=== PATIENT | female | born 1995 | race African-American/Black ===

== ENCOUNTER 2017-05-23 22:21 | Inpatient (IN) | payer BC ==
[2017-05-23] MEDS ORDERED: NS 0.9% 1000 ML* 2,000 ML IV ONE (23:03)
[2017-05-23] MEDS ORDERED: Ondansetron INJ* 2 MG/ML VIAL IV ONE (23:13)
[2017-05-23] MEDS ORDERED: HYDROmorphone INJ* 1 MG/ML CARPUJECT SYRINGE IV ONE (23:13)
[2017-05-23 23:46] LABS: Corrected Retic Count 3.5 % (0.5-1.5); Hematocrit 25 % (35-47); Hemoglobin 8.6 g/dl (12.0-16.0); Immature Retic Fraction 0.66; Mean Corpuscular HGB Conc 35 g/dl (31-36); Mean Corpuscular Hemoglobin 25 pg (27-31); Mean Corpuscular Volume 72 fL (80-97); Mean Platelet Volume 8 um3 (7.4-10.4); Red Blood Count 3.42 10^6/ul (4.0-5.4); Red Cell Distribution Width 21 % (10.5-15); White Blood Count 12.9 10^3/ul (3.5-10.8)
[2017-05-23 23:58] LABS: Add Diff/Slide Review? Slide Review Added; Comments Flag Yes
[2017-05-24 00:01] LABS: Albumin 4.4 g/dL (3.2-5.2); BUN/Creatinine Ratio 11.1 (8-20); C Reactive Protein 1.09 mg/L (< 5.00); Calcium 9.1 mg/dL (8.6-10.3); EGFR African American 131.5 (>60); EGFR Non-African American 102.3 (>60); Globulin 3.1 g/dL (2-4); Potassium 3.4 mmol/L (3.5-5.0); Total Bilirubin 3.2 mg/dL (0.2-1.0); Total Protein 7.5 g/dL (6.4-8.9)
[2017-05-24] MEDS ORDERED: HYDROmorphone INJ* 1 MG/ML CARPUJECT SYRINGE IV ONE (01:22)
[2017-05-24] MEDS ORDERED: NS 0.9% 1000 ML* 1,000 ML IV ONE (01:25)
[2017-05-24 01:45] LABS: Microcytosis 2+; Target Cells 3+
[2017-05-24 01:46] LABS: Hypochromasia 2+; Sickle Cells 2+
[2017-05-24 01:48] LABS: Polychromasia 1+
[2017-05-24 01:50] LABS: Add Path Review? YES
[2017-05-24] MEDS ORDERED: HYDROmorphone INJ* 1 MG/ML CARPUJECT SYRINGE IV SLOW PU PRN ×2 (02:43→03:02)
[2017-05-24] MEDS ORDERED: Albuterol HFA INHALER* 8 gm MDI INH PRN (03:14)
[2017-05-24] MEDS: HYDROmorphone INJ* 2 MG/ML CARPUJECT SYRINGE IV SLOW PU PRN ×2 (04:11→07:14)
--- NOTE | 2017-05-24 04:33 | HP ---
CC: Francisco Haro MD; Rosita Gibbons MD HISTORY AND PHYSICAL: DATE OF ADMISSION: 05/24/17 PRIMARY CARE PROVIDER: Francisco Haro MD, [place], [place]. HOME WORKER: Rosita Gibbons MD in [place], [place]. CHIEF COMPLAINT: Diffuse pain. HISTORY OF PRESENT ILLNESS: Ms. 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 The patient states at approximately 8 p.m. on 05/23/17, she had sudden onset of severe chest pain and diffuse limb pain but most specifically bothering her knees. In addition to the pain, she has moderate shortness of breath. She does note that she currently has her period as potential trigger for the sickle cell pain episode. She states that her last pain episode requiring hospitalization was in 2013. She states that ordinarily she will have weekly episodes of pain. She does state that her baseline hemoglobin is between 8.5 to 9. PAST MEDICAL HISTORY: 1. Sickle cell disease. 2. Asthma. PAST SURGICAL HISTORY: None. MEDICATIONS: 1. Folic acid 1 mg p.o. daily. 2. Albuterol inhaler p.r.n. 3. Percocet p.r.n. ALLERGIES: None. FAMILY HISTORY: Mom is living, she is 48 and has a history of hypertension. Dad is living, he is 52 and healthy. SOCIAL HISTORY: The patient is a nonsmoker. She does not drink alcohol. She denies any recreational drug use. She is a senior at [employer]. She is not . She has no children. She indicates that her father, Stoney, phone number is her healthcare proxy. REVIEW OF SYSTEMS: The patient denies any fevers, chills, or anorexia. She admits to chest pain as above. No edema. No cough. Moderate shortness of breath. No abdominal pain, nausea, vomiting, constipation, diarrhea, or hematochezia. No hematuria though she does currently have her period. No dysuria. She feels as though she is diffusely weak. No sudden changes in vision. No dysphagia. She does complain of diffuse joint pains, but more specifically in her knees. No rashes. No anxiety or depression. PHYSICAL EXAMINATION GENERAL: The patient is a well-developed, young, female, lying in a stretcher, moving very little, but appearing to be in no acute distress. VITAL SIGNS: Blood pressure 111/62, pulse 88, respirations 16, temp 97.8, O2 sat 95% on room air. HEENT: Pupils are equal. They are round. They react to light. Extraocular muscles are intact. Oropharynx is clear. Oral mucosa is slightly dry. There is no submandibular, cervical or supraclavicular adenopathy. Thyroid is not enlarged. No thyroid nodules are noted. PULMONARY: Lungs are clear to auscultation bilaterally. Breath sounds are diminished due to poor effort due to pain with inspiration. CARDIAC: Normal S1 and S2. Regular rate and rhythm. I do not appreciate any murmurs. There is no lower extremity edema. ABDOMEN: Bowel sounds are present. Abdomen is soft, nontender, nondistended. MUSCULOSKELETAL: There is no cyanosis or clubbing of the digits. Active range of motion is limited due to pain. Light touch to the patient's knees does cause severe pain. SKIN: Warm and dry. There are no rashes. NEURO: Cranial nerves II through XII are grossly intact. Sensation is intact to light touch throughout. Strength is not tested due to the patient's pain level. LABORATORY DATA/DIAGNOSTIC STUDIES: WBC 12.9, hemoglobin 8.6, hematocrit 25, platelets 309, and reticulocyte count 6.3%. Sodium 134, potassium 3.4, chloride 103, CO2 22, BUN 8, creatinine 0.72, and glucose 96. Lactic acid 1.1. Calcium 9.1. Bilirubin 3.2, AST 38, ALT 15, alk phos 49. Troponin 0. CRP 1.09. Albumin 4.4. To my inspection, the chest x-ray appears clear. EKG reveals normal sinus rhythm without any acute ST-T wave abnormalities. ASSESSMENT AND PLAN: Ms. Pettit is a 21-year-old female with known history of sickle cell disease presents to the emergency room in an acute pain episode related to her sickle cell disease. 1. Acute pain episode secondary to sickle cell disease. At this point, the patient will be admitted under observation status. She has had 3 L of normal saline in the emergency room. We will go ahead and continue normal saline at 100 mL per hour. We will need to monitor her sodium level as she can become hypernatremic with this as her sodium excretion could be impaired related to her sickle cell disease. Additionally, she will have Dilaudid 1 mg IV q.3 hours p.r.n. pain. At this point, the patient denies any further need for pain medication, though does state that her pain is much better now than it was when she presented to the emergency room. The patient at this point does not appear to have acute chest syndrome. Hematology input may be necessary if the patient fails to improve with basic measure such as hydration and pain control. 2. Asthma. The patient has no signs of asthma exacerbation at this time. We will continue p.r.n. albuterol. 3. Deep vein thrombosis prophylaxis. According to the Adult Thrombosis Prophylaxis Risk Factor Assessment Guide, the patient has a total risk factor score of likely 1 related to her sickle cell disease; however, recommendations are for subcutaneous heparin q.8 hours as DVT prophylaxis and therefore this will be instituted. 4. Code status is full and again the patient indicates that her father is her healthcare proxy. TIME SPENT: 55 minutes were spent admitting this patient. [id number]/[facility] #: [id number] OVI
[2017-05-24] MEDS: NS 0.9% 1000 ML* 1,000 ML IV SCH ×3 (05:03→23:22)
[2017-05-24] MEDS ORDERED: HYDROmorphone INJ* 2 MG/ML CARPUJECT SYRINGE IV SLOW PU ONE (05:03)
[2017-05-24] MEDS: Heparin VIAL(*) 5000 UNITS/ML VIAL (FIVE THOUSAND) SUBCUT SCH ×3 (05:18→21:48)
[2017-05-24] MEDS: Saline NASAL SPRAY 0.65%* BTL BOTH NARES PRN (05:51)
--- NOTE | 2017-05-24 07:27 | ED ---
Miguelito Urias Abhishek, scribed for Vu Laboy MD on 05/24/17 at 0223 . Complex/Multi-Sys Presentation - HPI Summary HPI Summary: This patient is a 21 year old F presenting to [facility] accompanied by female with a chief complaint of sickle cell pain in extremities since 0800 05/21/17. Pt is a student. Condition has not improved since onset. The CC is described as constant. The patient rates the pain 9/10 in severity. Symptoms aggravated by nothing. Symptoms alleviated by nothing. Patient reports last major pain in 2013. PMHx includes sickle cell anemia, and asthma. - History Of Current Complaint Chief Complaint: EDGeneral Time Seen by Provider: 05/24/17 02:08 Hx Obtained From: Patient Onset/Duration: Sudden Onset - 0800 on 05/21/17, Lasting Days - since 05/21/17, Still Present Timing: Constant Severity Currently: Severe Severity Initially: Severe Location: Pain At: - Extremeties (both upper and lower) Aggravating Factor(s): nothing Alleviating Factor(s): nothing - Allergies/Home Medications Allergies/Adverse Reactions: Allergies Allergy/AdvReac Type Severity Reaction Status Date / Time No Known Allergies Allergy Verified 05/23/17 22:55 Home Medications: Home Medications Albuterol HFA INHALER* [Ventolin HFA Inhaler*] 2 puff INH Q4H PRN 05/24/17 [ History Confirmed 05/24/17] Folic Acid TAB* [Folvite TAB*] 1 mg PO DAILY 05/24/17 [History Confirmed ] oxyCODONE/Acetamin 5/325 MG* [Percocet 5/325 TAB*] 2 tab PO Q4H PRN 05/24/17 [ History Confirmed 05/24/17] PMH/Surg Hx/FS Hx/Imm Hx Cardiovascular History: Reports: Other Cardiovascular Problems/Disorders - Sickle cell anemia Respiratory History: Reports: Hx Asthma Infectious Disease History: No Infectious Disease History: Denies: Traveled Outside the [place] in Last 30 Days - Family History Known Family History: Positive: Hypertension - Mother - Social History Occupation: Student Alcohol Use: None Substance Use Type: Reports: None Smoking Status (MU): Never Smoked Tobacco Review of Systems Constitutional: Negative Eyes: Negative ENT: Negative Cardiovascular: Negative Respiratory: Negative Gastrointestinal: Negative Genitourinary: Negative Positive: Other - Pain in her lower and upper extremities Skin: Negative Neurological: Negative Psychological: Normal All Other Systems Reviewed And Are Negative: Yes Physical Exam - Summary Physical Exam Summary: General: moderate pain distress Skin: warm, color reflects adequate perfusion, dry Head: normal Eyes: EOMI, RANDY ENT: normal Neck: supple, nontender Respiratory: CTA, breath sounds present Cardiovascular: RRR Abdomen: soft, nontender Bowel: present Musculoskeletal: normal, strength/ROM intact Neurological: normal, sensory/motor intact, A&O x3 Psychological: affect/mood appropriate Triage Information Reviewed: Yes Vital Signs On Initial Exam: Initial Vitals Temp Pulse Resp BP Pulse Ox 97.8 F 91 18 110/61 100 05/23/17 22:30 05/23/17 22:30 05/23/17 22:30 05/23/17 22:30 05/23/17 22:30 Vital Signs Reviewed: Yes - Ivon Coma Scale Coma Scale Total: 15 Diagnostics - Vital Signs Vital Signs Temp Pulse Resp BP Pulse Ox 05/24/17 01:28 16 05/24/17 00:30 84 116/70 97 05/24/17 00:01 88 117/67 95 05/24/17 00:00 83 95 05/23/17 23:30 92 121/72 99 05/23/17 23:25 18 05/23/17 23:00 91 125/77 99 05/23/17 22:31 92 99 05/23/17 22:30 97.8 F 91 18 110/61 100 - Laboratory Lab Results: Lab Results 05/23/17 05/23/17 05/23/17 Range/Units 23:26 23:26 23:26 WBC 12.9 H (3.5-10.8) 10^3/ul RBC 3.42 L (4.0-5.4) 10^6/ul RBC (Retic) 3.42 L (4.6-6.2) 10^6/ul Hgb 8.6 L (12.0-16.0) g/dl Hct 25 L (35-47) % HCT (Retic) 25 L (35-47) % MCV 72 L (80-97) fL MCH 25 L (27-31) pg MCHC 35 (31-36) g/dl RDW 21 H (10.5-15) % Plt Count 309 (150-450) 10^3/ul MPV 8 (7.4-10.4) um3 Neut % (Auto) 68.7 (38-83) % Lymph % (Auto) 21.1 L (25-47) % [place] % (Auto) 8.1 (1-9) % Eos % (Auto) 1.1 (0-6) % Baso % (Auto) 1.0 (0-2) % Absolute Neuts (auto) 8.8 H (1.5-7.7) 10^3/ul Absolute Lymphs (auto) 2.7 (1.0-4.8) 10^3/ul Absolute Monos (auto) 1.0 H (0-0.8) 10^3/ul Absolute Eos (auto) 0.1 (0-0.6) 10^3/ul Absolute Basos (auto) 0.1 (0-0.2) 10^3/ul Absolute Nucleated RBC 0.07 10^3/ul Nucleated RBC % 0.5 Normal RBC Morphology Not Reportable Polychromasia 1+ Hypochromasia 2+ Microcytosis 2+ Sickle Cells 2+ Target Cells 3+ Retic Count, Calc 6.3 H (0.5-1.5) % Corrected Retic Count 3.5 H (0.5-1.5) % Retic Shift Factor 2.0 Retic Production Index 1.80 Immature Retic Fraction 0.66 Mean Retic Volume 111.3 Hem Pathologist Commnt Pending Sodium 134 (133-145) mmol/L Potassium 3.4 L (3.5-5.0) mmol/L Chloride 103 (101-111) mmol/L Carbon Dioxide 22 (22-32) mmol/L Anion Gap 9 (2-11) mmol/L BUN 8 (6-24) mg/dL Creatinine 0.72 (0.51-0.95) mg/dL Est GFR ( Amer) 131.5 (>60) Est GFR (Non-Af Amer) 102.3 (>60) BUN/Creatinine Ratio 11.1 (8-20) Glucose 96 (70-100) mg/dL Lactic Acid 1.1 (0.5-2.0) mmol/L Calcium 9.1 (8.6-10.3) mg/dL Total Bilirubin 3.20 H (0.2-1.0) mg/dL AST 38 (13-39) U/L ALT 15 (7-52) U/L Alkaline Phosphatase 49 (34-104) U/L Troponin I 0.00 (<0.04) ng/mL C-Reactive Protein 1.09 (< 5.00) mg/L Total Protein 7.5 (6.4-8.9) g/dL Albumin 4.4 (3.2-5.2) g/dL Globulin 3.1 (2-4) g/dL Albumin/Globulin Ratio 1.4 (1-3) Result Diagrams: 05/23/17 23:26 05/23/17 23:26 Lab Statement: Any lab studies that have been ordered have been reviewed, and results considered in the medical decision making process. - Radiology CXR Xray Interpretation: No Acute Changes - NAD Radiology Interpretation Completed By: ED Physician - EKG 0304 Cardiac Rate: NL - 81 bpm EKG Rhythm: Sinus Rhythm ST Segment: Normal Ectopy: None Complex Multi-Symp Course/Dx Course Of Treatment: This patient is a 21 year old F presenting to [facility] accompanied by female with a chief complaint of sickle cell pain in extremities since 0800 05/21/17. Condition has not improved since onset. The CC is described as constant. The patient rates the pain 9/10 in severity. Patient reports last major pain in 2013. PMHx includes sickle cell anemia, and asthma. EKG is sinus rhythm with no acute changes. Troponin of 0.00. In the ED course, pt received Dilaudid, Zofran and fluids. Discussed care of pt with Dr. Ashly Boyer who accepts pt for admisison. Pt is agreeable with this plan. Medication reviewed. ADMIT HOSPITALIST. NO CRITICAL CARE TIME. - Diagnoses Provider Diagnoses: Sickle cell anemia with pain - Physician Notifications Discussed Care Of Patient With: Ashly Boyer Time Discussed With Above Provider: 02:20 Instructed by Provider To: Other - Accepts pt for admission. Discharge - Discharge Plan Condition: Stable Disposition: ADMITTED TO [facility] The documentation as recorded by the Miguelito rodriguez Abhishek accurately reflects the service I personally performed and the decisions made by , Vu Laboy MD.
[2017-05-24 07:40] LABS: Hematocrit 21 % (35-47); Hemoglobin 7.3 g/dl (12.0-16.0); Mean Corpuscular HGB Conc 34 g/dl (31-36); Mean Corpuscular Hemoglobin 25 pg (27-31); Mean Corpuscular Volume 71 fL (80-97); Mean Platelet Volume 8 um3 (7.4-10.4); Red Cell Distribution Width 22 % (10.5-15); White Blood Count 14.4 10^3/ul (3.5-10.8)
[2017-05-24 07:41] LABS: Comments Flag Yes
[2017-05-24 07:52] LABS: BUN/Creatinine Ratio 9.5 (8-20); Calcium 8.1 mg/dL (8.6-10.3); Direct Bilirubin 0.4 mg/dL (0.03-0.18); EGFR African American 153.4 (>60); EGFR Non-African American 119.3 (>60); Globulin 2.7 g/dL (2-4); Potassium 3.8 mmol/L (3.5-5.0); Total Bilirubin 2.4 mg/dL (0.2-1.0); Total Protein 6.7 g/dL (6.4-8.9)
--- NOTE | 2017-05-24 08:03 | RAD ---
HISTORY: Sickle cell crisis, pain COMPARISONS: None VIEWS: 4: Frontal dual-energy and lateral views of the chest. FINDINGS: CARDIOMEDIASTINAL SILHOUETTE: The cardiomediastinal silhouette is normal. CARINE: The carine are normal. PLEURA: The costophrenic angles are sharp. No pleural abnormalities are noted. LUNG PARENCHYMA: The lungs are clear. ABDOMEN: The upper abdomen is clear. There is no subphrenic gas. BONES AND SOFT TISSUES: No bone or soft tissue abnormalities are noted. OTHER: None. IMPRESSION: NO ACTIVE CARDIOPULMONARY DISEASE.
--- NOTE | 2017-05-24 08:38 | PN ---
Subjective Date of Service: 05/24/17 Interval History: Pain in legs and chest. Hydromorphone makes her sleepy but does little to relieve her pain. She states this is the worst sickle crisis she has had. Her last hospitalization for sickle crisis was in 2013. She states she has never had a transfusion. Objective Active Medications: Acetaminophen (Tylenol Tab*) 650 mg PO Q4H PRN PRN Reason: PAIN Albuterol (Ventolin Hfa Inhaler*) 2 puff INH Q4H PRN PRN Reason: SOB/WHEEZING Folic Acid (Folvite Tab*) 1 mg PO DAILY [facility] Heparin Sodium (Porcine) (Heparin Vial(*)) 5,000 units SUBCUT Q8HR [facility] Last Admin: 05/24/17 05:18 Dose: Not Given Sodium Chloride (Ns 0.9% 1000 Ml*) 1,000 mls @ 100 mls/hr IV PER RATE [facility] Last Admin: 05/24/17 05:03 Dose: 100 mls/hr Morphine Sulfate (Morphine Inj (Syringe)*) 2 mg IV Q2H PRN PRN Reason: PAIN - MODERATE Morphine Sulfate (Morphine Inj (Syringe)*) 4 mg IV Q2H PRN PRN Reason: PAIN - SEVERE Stop: 05/24/17 16:32 Sodium Chloride (Sodium Chloride 0.65% Nasal [place]*) 2 spray BOTH NARES Q4H PRN PRN Reason: CONGESTION Last Admin: 05/24/17 05:51 Dose: 2 spray Vital Signs 05/24/17 05/24/17 05/24/17 03:00 03:08 03:15 Temperature Pulse Rate 85 86 Respiratory Rate Blood Pressure 112/65 115/72 (mmHg) O2 Sat by Pulse 96 95 Oximetry 05/24/17 05/24/17 05/24/17 03:59 04:11 05:10 Temperature 98.1 F Pulse Rate 88 Respiratory 18 18 18 Rate Blood Pressure 128/74 (mmHg) O2 Sat by Pulse 98 Oximetry 05/24/17 05/24/17 05/24/17 05:55 06:00 07:14 Temperature Pulse Rate Respiratory 20 18 16 Rate Blood Pressure (mmHg) O2 Sat by Pulse Oximetry 05/24/17 07:42 Temperature 100.2 F Pulse Rate 93 Respiratory 18 Rate Blood Pressure 120/64 (mmHg) O2 Sat by Pulse 90 Oximetry Oxygen Devices in Use Now: None Appearance: Awake but looks somewhat sedated. Supine in bed, not moving. Eyes: No Scleral Icterus Neck: NL Appearance and Movements; NL JVP, No Thyroid Enlargement, Masses Respiratory: Symmetrical Chest Expansion and Respiratory Effort, Clear to Auscultation, Clear to Percussion Cardiovascular: RRR, No Edema, - - Rapid, regular. 1-2/6 systolic murmur L > R Extremities: No Edema, No Clubbing, Cyanosis, - Skin: No Rash or Ulcers, No Nodules or Sclerosis, - Neurological: Alert and Oriented x 3, NL Sensation Result Diagrams: 05/24/17 07:22 05/24/17 07:22 Additional Lab and Data: Lab Results 05/23/17 05/23/17 05/23/17 Range/Units 23:26 23:26 23:26 WBC 12.9 H (3.5-10.8) 10^3/ul RBC 3.42 L (4.0-5.4) 10^6/ul RBC (Retic) 3.42 L (4.6-6.2) 10^6/ul Hgb 8.6 L (12.0-16.0) g/dl Hct 25 L (35-47) % HCT (Retic) 25 L (35-47) % MCV 72 L (80-97) fL MCH 25 L (27-31) pg MCHC 35 (31-36) g/dl RDW 21 H (10.5-15) % Plt Count 309 (150-450) 10^3/ul MPV 8 (7.4-10.4) um3 Neut % (Auto) 68.7 (38-83) % Lymph % (Auto) 21.1 L (25-47) % [place] % (Auto) 8.1 (1-9) % Eos % (Auto) 1.1 (0-6) % Baso % (Auto) 1.0 (0-2) % Absolute Neuts (auto) 8.8 H (1.5-7.7) 10^3/ul Absolute Lymphs (auto) 2.7 (1.0-4.8) 10^3/ul Absolute Monos (auto) 1.0 H (0-0.8) 10^3/ul Absolute Eos (auto) 0.1 (0-0.6) 10^3/ul Absolute Basos (auto) 0.1 (0-0.2) 10^3/ul Absolute Nucleated RBC 0.07 10^3/ul Nucleated RBC % 0.5 Normal RBC Morphology Not Reportable Polychromasia 1+ Hypochromasia 2+ Microcytosis 2+ Sickle Cells 2+ Target Cells 3+ Retic Count, Calc 6.3 H (0.5-1.5) % Corrected Retic Count 3.5 H (0.5-1.5) % Retic Shift Factor 2.0 Retic Production Index 1.80 Immature Retic Fraction 0.66 Mean Retic Volume 111.3 Hem Pathologist Commnt Pending Sodium 134 (133-145) mmol/L Potassium 3.4 L (3.5-5.0) mmol/L Chloride 103 (101-111) mmol/L Carbon Dioxide 22 (22-32) mmol/L Anion Gap 9 (2-11) mmol/L BUN 8 (6-24) mg/dL Creatinine 0.72 (0.51-0.95) mg/dL Est GFR ( Amer) 131.5 (>60) Est GFR (Non-Af Amer) 102.3 (>60) BUN/Creatinine Ratio 11.1 (8-20) Glucose 96 (70-100) mg/dL Lactic Acid 1.1 (0.5-2.0) mmol/L Calcium 9.1 (8.6-10.3) mg/dL Total Bilirubin 3.20 H (0.2-1.0) mg/dL AST 38 (13-39) U/L ALT 15 (7-52) U/L Alkaline Phosphatase 49 (34-104) U/L Troponin I 0.00 (<0.04) ng/mL C-Reactive Protein 1.09 (< 5.00) mg/L Total Protein 7.5 (6.4-8.9) g/dL Albumin 4.4 (3.2-5.2) g/dL Globulin 3.1 (2-4) g/dL Albumin/Globulin Ratio 1.4 (1-3) Assess/Plan/Problems-Billing Assessment: - Patient Problems (1) Sickle cell anemia with crisis Current Visit: Yes Status: Acute Code(s): D57.00 - HB-SS DISEASE WITH CRISIS , UNSPECIFIED SNOMED Code(s): 310691783 Comment: Continue IV fluids, analgesics. Message left for her primary hemtologist Rosita Gibbons ([phone]) to call me back. Change to morphine as her mother says it works better than hydromorphone for the patient. I spoke to the mother at [phone].
[2017-05-24] MEDS ORDERED: Heparin VIAL(*) 5000 UNITS/ML VIAL (FIVE THOUSAND) SUBCUT SCH (09:00)
[2017-05-24] MEDS: Morphine INJ* 4 MG/ML 1 ML CARPUJECT IV PRN ×4 (09:01→15:03)
[2017-05-24] MEDS: Folic Acid TAB* 1 MG PO SCH (09:02)
[2017-05-24] MEDS: Morphine INJ* 2 MG/ML 1 ML SYRINGE (TWO MG - NEW SYRINGE VERSION) IV PRN ×5 (11:00→23:22)
[2017-05-24] MEDS ORDERED: Morphine INJ* 2 MG/ML 1 ML SYRINGE (TWO MG - NEW SYRINGE VERSION) IV ONE (19:48)
[2017-05-24] MEDS: Acetaminophen TAB* 325 MG PO PRN (20:02)
[2017-05-24] MEDS: Docusate CAP* 100 MG PO SCH (20:02)
[2017-05-24 22:54] LABS: Urine Bacteria Absent (Absent); Urine Bilirubin Negative (Negative); Urine Glucose Negative (Negative); Urine Nitrite Negative (Negative)
[2017-05-25] MEDS: Acetaminophen TAB* 325 MG PO PRN ×2 (03:36→13:14)
[2017-05-25] MEDS: Morphine INJ* 2 MG/ML 1 ML SYRINGE (TWO MG - NEW SYRINGE VERSION) IV PRN ×3 (03:37→09:30)
[2017-05-25] MEDS: Heparin VIAL(*) 5000 UNITS/ML VIAL (FIVE THOUSAND) SUBCUT SCH ×3 (06:27→21:13)
[2017-05-25 06:57] LABS: Hematocrit 23 % (35-47); Hemoglobin 8.2 g/dl (12.0-16.0); Mean Corpuscular HGB Conc 35 g/dl (31-36); Mean Corpuscular Hemoglobin 25 pg (27-31); Mean Platelet Volume 9 um3 (7.4-10.4); Red Blood Count 3.27 10^6/ul (4.0-5.4); Red Cell Distribution Width 22 % (10.5-15); White Blood Count 18.7 10^3/ul (3.5-10.8)
[2017-05-25 07:05] LABS: Comments Flag Yes; Mean Corpuscular Volume 71 fL (80-97)
--- NOTE | 2017-05-25 08:36 | PN ---
Subjective Date of Service: 05/25/17 Interval History: C/O pain most severe R lower leg, still some in chest. No cough, no SOB. Poor appetite. She seems satisfied with the analgesics she is getting. Objective Active Medications: Acetaminophen (Tylenol Tab*) 650 mg PO Q4H PRN PRN Reason: PAIN Last Admin: 05/25/17 03:36 Dose: 650 mg Albuterol (Ventolin Hfa Inhaler*) 2 puff INH Q4H PRN PRN Reason: SOB/WHEEZING Docusate Sodium (Colace Cap*) 100 mg PO BID [facility] Last Admin: 05/24/17 20:02 Dose: 100 mg Folic Acid (Folvite Tab*) 1 mg PO DAILY [facility] Last Admin: 05/24/17 09:02 Dose: 1 mg Heparin Sodium (Porcine) (Heparin Vial(*)) 5,000 units SUBCUT Q8HR [facility] Last Admin: 05/25/17 06:27 Dose: 5,000 units Sodium Chloride (Ns 0.9% 1000 Ml*) 1,000 mls @ 100 mls/hr IV PER RATE [facility] Last Admin: 05/24/17 23:22 Dose: 100 mls/hr Levofloxacin/Dextrose (Levaquin 750 Mg Ivpremix(*)) 750 mg in 150 mls @ 100 mls /hr IVPB Q24H [facility] Morphine Sulfate (Morphine Inj (Syringe)*) 4 mg IV Q3H PRN PRN Reason: PAIN - MODERATE Last Admin: 05/25/17 06:27 Dose: 4 mg Sodium Chloride (Sodium Chloride 0.65% Nasal [place]*) 2 spray BOTH NARES Q4H PRN PRN Reason: CONGESTION Last Admin: 05/24/17 05:51 Dose: 2 spray Vital Signs 05/24/17 05/24/17 05/24/17 10:01 11:00 11:28 Temperature 99.9 F Pulse Rate 105 Respiratory 16 16 15 Rate Blood Pressure 130/64 (mmHg) O2 Sat by Pulse 92 Oximetry 05/24/17 05/24/17 05/24/17 11:29 12:00 12:29 Temperature Pulse Rate Respiratory 17 16 16 Rate Blood Pressure (mmHg) O2 Sat by Pulse Oximetry 05/24/17 05/24/17 05/24/17 12:40 13:09 14:09 Temperature Pulse Rate Respiratory 17 16 16 Rate Blood Pressure (mmHg) O2 Sat by Pulse Oximetry 05/24/17 05/24/17 05/24/17 14:55 15:03 16:03 Temperature 100.7 F Pulse Rate 109 Respiratory 20 20 16 Rate Blood Pressure 110/56 (mmHg) O2 Sat by Pulse 95 Oximetry 05/24/17 05/24/17 05/24/17 17:00 18:00 18:48 Temperature Pulse Rate Respiratory 15 16 15 Rate Blood Pressure (mmHg) O2 Sat by Pulse Oximetry 05/24/17 05/24/17 05/24/17 19:47 19:48 20:00 Temperature 102.8 F Pulse Rate 114 Respiratory 18 16 16 Rate Blood Pressure 131/81 (mmHg) O2 Sat by Pulse 96 Oximetry 05/24/17 05/24/17 05/24/17 20:02 21:00 21:46 Temperature 101.5 F Pulse Rate Respiratory 20 16 Rate Blood Pressure (mmHg) O2 Sat by Pulse Oximetry 05/24/17 05/24/17 05/24/17 22:46 23:15 23:22 Temperature 100.0 F Pulse Rate 112 Respiratory 16 16 20 Rate Blood Pressure 133/75 (mmHg) O2 Sat by Pulse 96 Oximetry 05/25/17 05/25/17 05/25/17 00:22 03:29 03:37 Temperature 102.4 F Pulse Rate 118 Respiratory 16 20 20 Rate Blood Pressure 161/59 (mmHg) O2 Sat by Pulse 96 Oximetry 05/25/17 05/25/17 05/25/17 06:27 07:27 07:40 Temperature 98.7 F Pulse Rate 102 Respiratory 18 16 17 Rate Blood Pressure 132/77 (mmHg) O2 Sat by Pulse 97 Oximetry 05/25/17 08:00 Temperature Pulse Rate Respiratory 16 Rate Blood Pressure (mmHg) O2 Sat by Pulse Oximetry Oxygen Devices in Use Now: None Appearance: Alert, on her side in bed. Looks weak and ill, uncomfortable. Respiratory: Symmetrical Chest Expansion and Respiratory Effort, Clear to Auscultation, Clear to Percussion Cardiovascular: NL Sounds; No Murmurs; No JVD, RRR, No Edema, - Abdominal: No Hepatosplenomegaly, - - Soft, mildly tender. No BS. Extremities: No Edema, No Clubbing, Cyanosis, - - R calf tender but soft, not enlarged. Skin: No Rash or Ulcers, No Nodules or Sclerosis, - Neurological: Alert and Oriented x 3, NL Sensation Result Diagrams: 05/25/17 06:39 05/24/17 07:22 Additional Lab and Data: Lab Results 05/23/17 05/23/17 05/23/17 Range/Units 23:26 23:26 23:26 WBC 12.9 H (3.5-10.8) 10^3/ul RBC 3.42 L (4.0-5.4) 10^6/ul RBC (Retic) 3.42 L (4.6-6.2) 10^6/ul Hgb 8.6 L (12.0-16.0) g/dl Hct 25 L (35-47) % HCT (Retic) 25 L (35-47) % MCV 72 L (80-97) fL MCH 25 L (27-31) pg MCHC 35 (31-36) g/dl RDW 21 H (10.5-15) % Plt Count 309 (150-450) 10^3/ul MPV 8 (7.4-10.4) um3 Neut % (Auto) 68.7 (38-83) % Lymph % (Auto) 21.1 L (25-47) % [place] % (Auto) 8.1 (1-9) % Eos % (Auto) 1.1 (0-6) % Baso % (Auto) 1.0 (0-2) % Absolute Neuts (auto) 8.8 H (1.5-7.7) 10^3/ul Absolute Lymphs (auto) 2.7 (1.0-4.8) 10^3/ul Absolute Monos (auto) 1.0 H (0-0.8) 10^3/ul Absolute Eos (auto) 0.1 (0-0.6) 10^3/ul Absolute Basos (auto) 0.1 (0-0.2) 10^3/ul Absolute Nucleated RBC 0.07 10^3/ul Nucleated RBC % 0.5 Normal RBC Morphology Not Reportable Polychromasia 1+ Hypochromasia 2+ Microcytosis 2+ Sickle Cells 2+ Target Cells 3+ Retic Count, Calc 6.3 H (0.5-1.5) % Corrected Retic Count 3.5 H (0.5-1.5) % Retic Shift Factor 2.0 Retic Production Index 1.80 Immature Retic Fraction 0.66 Mean Retic Volume 111.3 Hem Pathologist Commnt Pending Sodium 134 (133-145) mmol/L Potassium 3.4 L (3.5-5.0) mmol/L Chloride 103 (101-111) mmol/L Carbon Dioxide 22 (22-32) mmol/L Anion Gap 9 (2-11) mmol/L BUN 8 (6-24) mg/dL Creatinine 0.72 (0.51-0.95) mg/dL Est GFR ( Amer) 131.5 (>60) Est GFR (Non-Af Amer) 102.3 (>60) BUN/Creatinine Ratio 11.1 (8-20) Glucose 96 (70-100) mg/dL Lactic Acid 1.1 (0.5-2.0) mmol/L Calcium 9.1 (8.6-10.3) mg/dL Total Bilirubin 3.20 H (0.2-1.0) mg/dL AST 38 (13-39) U/L ALT 15 (7-52) U/L Alkaline Phosphatase 49 (34-104) U/L Troponin I 0.00 (<0.04) ng/mL C-Reactive Protein 1.09 (< 5.00) mg/L Total Protein 7.5 (6.4-8.9) g/dL Albumin 4.4 (3.2-5.2) g/dL Globulin 3.1 (2-4) g/dL Albumin/Globulin Ratio 1.4 (1-3) Assess/Plan/Problems-Billing Assessment: - Patient Problems (1) Sickle cell anemia with crisis Current Visit: Yes Status: Acute Code(s): D57.00 - HB-SS DISEASE WITH CRISIS , UNSPECIFIED SNOMED Code(s): 361877407 Comment: Continue IV fluids, analgesics. Message left for her primary hemtologist Rosita Gibbons ([phone]) to call me back. Change to morphine as her mother says it works better than hydromorphone for the patient. I spoke to the mother at [phone]. (2) Fever Current Visit: Yes Status: Acute Code(s): R50.9 - FEVER, UNSPECIFIED SNOMED Code(s): 204553105 Comment: Blood C&S sent. Start levofloxacin 750 mg IV q24 hr 05/25/17 AM.
[2017-05-25] MEDS: Levofloxacin 750 MG IVPREMIX(* 750 MG/150 ML BAG IVPB SCH (09:00)
[2017-05-25] MEDS: Folic Acid TAB* 1 MG PO SCH (09:00)
[2017-05-25] MEDS: NS 0.9% 1000 ML* 1,000 ML IV SCH ×2 (09:00→21:24)
[2017-05-25] MEDS: Docusate CAP* 100 MG PO SCH ×2 (09:01→21:12)
--- NOTE | 2017-05-25 11:55 | CONS ---
CONSULTATION REPORT: DATE OF CONSULT / DICTATION: 05/25/17 REFERRING PHYSICIAN: Dr. Vogel. REASON FOR CONSULT: Sickle cell disease and pain crisis. 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 She has a longstanding history of sickle cell disease and is generally managed at [facility] in [place]. She has a history of mild painful crisis, approximately 5 per year. Tends to occur at the time of her periods and she is treated with home Percocet. She generally does not require hospitalization. She again had pain typical for her menstrual cycles starting on 05/23/17. The pain progressed quickly where she started to develop pain in both knees and then diffuse body achiness as well as episodes of chest pain that became severe. She started to feel short of breath and came to the emergency room. On presentation, she was found to have a white count of 12.9, hemoglobin 8.6, platelets of 309 with a retic count of 6.3 and corrected retic count of 3.5. With hydration, her hemoglobin dropped down to 7.3. Her baseline hemoglobin is between 8 and 9. She is placed on IV fluids and IV Dilaudid. She developed fevers with a temperature of 102.8 at 1947 on 05/24/17 and then a temperature of 102.4 at 3 a.m. this morning. Chest x- ray was negative on 05/24/17, and she was placed on IV Levaquin 750 mg daily. This morning, she does feel a little bit better. She is not having chest pain. She has a normal respiratory rate. She continues to be aching all over and pain in her knees. She is continuing to require IV morphine, last given 4 mg at 9 a.m. this morning. She has sickle cell beta thalassemia. The last admission she can recall was 2013. She has not had a history of exchange transfusion. No strokes, she still has her gallbladder, no history of avascular necrosis. She has not had an episode of acute chest syndrome that she can recall. She does not smoke and is generally compliant with therapy. PAST MEDICAL HISTORY: 1. Sickle cell disease. 2. Asthma. PAST SURGICAL HISTORY: None. MEDICATIONS: At home: 1. Folic acid 1 mg daily. 2. Albuterol inhaler. 3. Percocet p.r.n. ALLERGIES: None. FAMILY HISTORY: Both parents are alive and well. No clear family history of sickle cell disease. SOCIAL HISTORY: Nonsmoker and does not drink alcohol. Senior at [employer]. Not and no children. Father is her contact, at telephone number , he is the healthcare proxy. REVIEW OF SYSTEMS: Fevers last night. Today, denies. She feels achy all over. HEENT: Negative. Pulmonary: She denies shortness of breath, lying in bed this morning and she has not been straining to breathe. Chest pain has improved. Cardiac: Negative. GI: More appetite at this time. No abdominal pain. : She is urinating frequently on IV fluids. Musculoskeletal: Diffuse joint pain as above, still pain in the knees, but little bit better than yesterday. Neurologic: Denies focal complaints. Skin: Negative. PHYSICAL EXAM: Temperature 98.7, pulse rate 102, respirations 17, O2 sat 97% on room air, BP 132/77. HEENT: Conjunctivae slightly icteric. Oral mucosa moist, no lesions. No JVD. Lungs are clear to auscultation bilaterally. Heart : Regular rate and rhythm, S1 and S2. No murmurs, rubs, or gallops. Abdomen: Nontender and nondistended, no palpable spleen. Extremities: She has got good pulses. No edema. Neurologic: Answering questions, moving all 4 extremities. We did not do detailed exam. ASSESSMENT AND PLAN: A 21-year-old female with a history of sickle cell beta thalassemia presents with the painful crisis. She had fever as well as chest pain and shortness of breath and a negative chest x-ray. Concerning for acute chest syndrome, but does not meet diagnostic criteria at this time. She appears to have had a mild disease phenotype thus far. 1. Agree with current management including levofloxacin. She should continue on IV fluids. I am putting her on oxygen 4 L nasal cannula, which she should maintain at all times. Her hemoglobin has increased today at 8.2; I do not recommend transfusion. Continue morphine as needed. 2. Repeat blood work today including reticulocyte count and a bilirubin and we will follow her LDH. 3. shortness of breath, increasing chest pain, we would transfuse 2 units of packed cells. No transfusion planned at this time. 4. We will continue to follow through the hospitalization. [id number]/[facility] #: [id number] MTDD
[2017-05-25 12:09] LABS: Corrected Retic Count 4.8 % (0.5-1.5); Immature Retic Fraction 0.66
[2017-05-25 12:15] LABS: Comments Flag Yes
[2017-05-25 12:20] LABS: BUN/Creatinine Ratio 8.1 (8-20); Calcium 8.8 mg/dL (8.6-10.3); EGFR African American 156.3 (>60); EGFR Non-African American 121.5 (>60); Globulin 3.2 g/dL (2-4); Potassium 3.8 mmol/L (3.5-5.0); Total Protein 7.2 g/dL (6.4-8.9)
[2017-05-25] MEDS: Trolamine Salicyl. 10% CREAM* 85 GM TUBE TOPICAL SCH ×2 (14:03→21:13)
[2017-05-25] MEDS: oxyCODONE/Acetamin 5/325 MG* TAB PO PRN (21:11)
[2017-05-26] MEDS: oxyCODONE/Acetamin 5/325 MG* TAB PO PRN ×4 (01:35→21:43)
[2017-05-26] MEDS: Heparin VIAL(*) 5000 UNITS/ML VIAL (FIVE THOUSAND) SUBCUT SCH ×3 (06:06→21:43)
[2017-05-26 06:19] LABS: Hematocrit 27 % (35-47); Hemoglobin 9.2 g/dl (12.0-16.0); Mean Corpuscular HGB Conc 34 g/dl (31-36); Mean Corpuscular Hemoglobin 25 pg (27-31); Mean Corpuscular Volume 74 fL (80-97); Mean Platelet Volume 8 um3 (7.4-10.4); Red Blood Count 3.67 10^6/ul (4.0-5.4); Red Cell Distribution Width 20 % (10.5-15); White Blood Count 18.3 10^3/ul (3.5-10.8)
[2017-05-26 06:22] LABS: Add Diff/Slide Review? Slide Review Added
[2017-05-26 06:36] LABS: Anion Gap 6 mmol/L (2-11); BUN/Creatinine Ratio 8.5 (8-20); Blood Urea Nitrogen 5 mg/dL (6-24); CO2 Carbon Dioxide 24 mmol/L (22-32); Calcium 8.9 mg/dL (8.6-10.3); Chloride 106 mmol/L (101-111); EGFR African American 165.5 (>60); EGFR Non-African American 128.7 (>60); Glucose 95 mg/dL (70-100); Potassium 3.7 mmol/L (3.5-5.0); Sodium 136 mmol/L (133-145)
[2017-05-26 07:02] LABS: Comments Flag 0
[2017-05-26 07:03] LABS: Hypochromasia 1+; Microcytosis 2+; Sickle Cells 2+; Target Cells 2+
[2017-05-26 07:04] LABS: Polychromasia 1+; Spherocytes 1+
[2017-05-26] MEDS: NS 0.9% 1000 ML* 1,000 ML IV SCH (07:12)
[2017-05-26] MEDS: Levofloxacin 750 MG IVPREMIX(* 750 MG/150 ML BAG IVPB SCH (08:46)
[2017-05-26] MEDS: Docusate CAP* 100 MG PO SCH (08:46)
[2017-05-26] MEDS: Folic Acid TAB* 1 MG PO SCH (08:46)
[2017-05-26] MEDS: Trolamine Salicyl. 10% CREAM* 85 GM TUBE TOPICAL SCH ×3 (08:47→21:45)
--- NOTE | 2017-05-26 08:54 | RAD ---
INDICATION: Cough and fever. COMPARISON: Comparison is made with a prior study from May 24, 2017. TECHNIQUE: Dual-energy PA and lateral views of the chest were obtained. FINDINGS: The heart is within normal limits in size. Mediastinal and hilar contours appear within normal limits. There are small bibasilar infiltrates and a small right pleural effusion which are new from the prior exam. IMPRESSION: SMALL BIBASILAR INFILTRATES AND SMALL RIGHT PLEURAL EFFUSION, NEW.
--- NOTE | 2017-05-26 09:29 | PN ---
Progress Note - Progress Note Date of Service: 05/26/17 SOAP: Subjective: overall feels better today though still having some pain in her legs and arms. chest pain definitely better. no cough this morning. Objective: Vital Signs Temp Pulse Resp BP Pulse Ox 99.2 F 105 18 113/66 100 05/26/17 07:26 05/26/17 07:26 05/26/17 07:26 05/26/17 07:26 05/26/17 07:26 lying on side in NAD perr eomi op moist CTA bl s1 s2 tachy soft nt +bs no le edema A+O x 3 nonfocal neuro exam Acetaminophen (Tylenol Tab*) 650 mg PO Q4H PRN PRN Reason: PAIN Last Admin: 05/25/17 13:14 Dose: 650 mg Albuterol (Ventolin Hfa Inhaler*) 2 puff INH Q4H PRN PRN Reason: SOB/WHEEZING Docusate Sodium (Colace Cap*) 100 mg PO BID [facility] Last Admin: 05/26/17 08:46 Dose: 100 mg Folic Acid (Folvite Tab*) 1 mg PO DAILY [facility] Last Admin: 05/26/17 08:46 Dose: 1 mg Heparin Sodium (Porcine) (Heparin Vial(*)) 5,000 units SUBCUT Q8HR [facility] Last Admin: 05/26/17 06:06 Dose: 5,000 units Sodium Chloride (Ns 0.9% 1000 Ml*) 1,000 mls @ 100 mls/hr IV PER RATE [facility] Last Admin: 05/26/17 07:12 Dose: 100 mls/hr Levofloxacin/Dextrose (Levaquin 750 Mg Ivpremix(*)) 750 mg in 150 mls @ 100 mls /hr IVPB Q24H [facility] Last Admin: 05/26/17 08:46 Dose: 100 mls/hr Morphine Sulfate (Morphine Inj (Syringe)*) 4 mg IV Q3H PRN PRN Reason: PAIN - MODERATE Last Admin: 05/25/17 09:30 Dose: 4 mg Oxycodone/Acetaminophen (Percocet 5/325 Tab*) 2 tab PO Q4H PRN PRN Reason: PAIN Last Admin: 05/26/17 01:35 Dose: 2 tab Sodium Chloride (Sodium Chloride 0.65% Nasal [place]*) 2 spray BOTH NARES Q4H PRN PRN Reason: CONGESTION Last Admin: 05/24/17 05:51 Dose: 2 spray Trolamine Salicylate (Myoflex 10% Cream*) 1 applic TOPICAL TID [facility] Last Admin: 05/26/17 08:47 Dose: 1 applic CXR: new bibasilar infiltrates and small right pleural effusion Laboratory Results - last 24 hr 05/25/17 05/25/17 05/26/17 11:55 11:56 06:09 WBC 18.3 H RBC 3.67 L RBC (Retic) 3.48 L Hgb 9.2 L Hct 27 L HCT (Retic) 25 L MCV 74 L MCH 25 L MCHC 34 RDW 20 H Plt Count 223 MPV 8 Neut % (Auto) 71.2 Lymph % (Auto) 20.6 L [place] % (Auto) 7.4 Eos % (Auto) 0.2 Baso % (Auto) 0.6 Absolute Neuts (auto) 13.0 H Absolute Lymphs (auto) 3.8 Absolute Monos (auto) 1.4 H Absolute Eos (auto) 0 Absolute Basos (auto) 0.1 Absolute Nucleated RBC 0.14 Nucleated RBC % 0.7 Normal RBC Morphology Not Reportable Polychromasia 1+ Hypochromasia 1+ Microcytosis 2+ Spherocytes 1+ Sickle Cells 2+ Target Cells 2+ Retic Count, Calc 8.7 H Corrected Retic Count 4.8 H Retic Shift Factor 2.0 Retic Production Index 2.40 Immature Retic Fraction 0.66 Mean Retic Volume 110.3 Sodium 133 Potassium 3.8 Chloride 103 Carbon Dioxide 25 Anion Gap 5 BUN 5 L Creatinine 0.62 Est GFR ( Amer) 156.3 Est GFR (Non-Af Amer) 121.5 BUN/Creatinine Ratio 8.1 Glucose 112 H Calcium 8.8 Total Bilirubin 4.00 H D AST 36 ALT 16 Alkaline Phosphatase 71 Lactate Dehydrogenase 634 H Total Protein 7.2 Albumin 4.0 Globulin 3.2 Albumin/Globulin Ratio 1.3 05/26/17 05/26/17 06:09 07:26 WBC RBC RBC (Retic) Hgb Hct HCT (Retic) MCV MCH MCHC RDW Plt Count MPV Neut % (Auto) Lymph % (Auto) [place] % (Auto) Eos % (Auto) Baso % (Auto) Absolute Neuts (auto) Absolute Lymphs (auto) Absolute Monos (auto) Absolute Eos (auto) Absolute Basos (auto) Absolute Nucleated RBC Nucleated RBC % Normal RBC Morphology Polychromasia Hypochromasia Microcytosis Spherocytes Sickle Cells Target Cells Retic Count, Calc Corrected Retic Count Retic Shift Factor Retic Production Index Immature Retic Fraction Mean Retic Volume Sodium 136 Potassium 3.7 Chloride 106 Carbon Dioxide 24 Anion Gap 6 BUN 5 L Creatinine 0.59 Est GFR ( Amer) 165.5 Est GFR (Non-Af Amer) 128.7 BUN/Creatinine Ratio 8.5 Glucose 95 Calcium 8.9 Total Bilirubin AST ALT Alkaline Phosphatase Lactate Dehydrogenase TNP 602 H Total Protein Albumin Globulin Albumin/Globulin Ratio Assessment: 21 yo F w sickle/beta thal with acute chest syndrome, likely mild to moderate. I discussed with Lydia and her family that it is very difficult to tell the difference between an infectious etiology (ie PNA) and fat emboli without bone marrow biopsy or bronchoscopy. Overall clinically she appears improved, though does have a rising bilirubin and so we will need to watch liver function closely. If she deteriorates AT ALL, she should have 1 unit simple transfusion and transfer to [facility] where she could get exchange transfusion if needed. I would continue aggressive pain control and hydration, as well as IV antibiotics at this point. I did encourage incentive spirometry as well. Lydia and her family understands these recommendations.
[2017-05-26] MEDS ORDERED: Magnesium Hydroxide LIQ* 30 ML UDC PO ONE (09:48)
--- NOTE | 2017-05-26 09:51 | PN ---
Subjective Date of Service: 05/26/17 Interval History: Pain down to level 5. Little or no cough, not SOB. Ate some today. No BM since admission. Objective Active Medications: Acetaminophen (Tylenol Tab*) 650 mg PO Q4H PRN PRN Reason: PAIN Last Admin: 05/25/17 13:14 Dose: 650 mg Albuterol (Ventolin Hfa Inhaler*) 2 puff INH Q4H PRN PRN Reason: SOB/WHEEZING Docusate Sodium (Colace Cap*) 100 mg PO BID [facility] Last Admin: 05/26/17 08:46 Dose: 100 mg Folic Acid (Folvite Tab*) 1 mg PO DAILY [facility] Last Admin: 05/26/17 08:46 Dose: 1 mg Heparin Sodium (Porcine) (Heparin Vial(*)) 5,000 units SUBCUT Q8HR [facility] Last Admin: 05/26/17 06:06 Dose: 5,000 units Sodium Chloride (Ns 0.9% 1000 Ml*) 1,000 mls @ 100 mls/hr IV PER RATE [facility] Last Admin: 05/26/17 07:12 Dose: 100 mls/hr Levofloxacin/Dextrose (Levaquin 750 Mg Ivpremix(*)) 750 mg in 150 mls @ 100 mls /hr IVPB Q24H [facility] Last Admin: 05/26/17 08:46 Dose: 100 mls/hr Morphine Sulfate (Morphine Inj (Syringe)*) 4 mg IV Q3H PRN PRN Reason: PAIN - MODERATE Last Admin: 05/25/17 09:30 Dose: 4 mg Oxycodone/Acetaminophen (Percocet 5/325 Tab*) 2 tab PO Q4H PRN PRN Reason: PAIN Last Admin: 05/26/17 09:26 Dose: 2 tab Sodium Chloride (Sodium Chloride 0.65% Nasal [place]*) 2 spray BOTH NARES Q4H PRN PRN Reason: CONGESTION Last Admin: 05/24/17 05:51 Dose: 2 spray Trolamine Salicylate (Myoflex 10% Cream*) 1 applic TOPICAL TID [facility] Last Admin: 05/26/17 08:47 Dose: 1 applic Vital Signs 05/25/17 05/25/17 05/25/17 10:29 12:51 15:21 Temperature 102.5 F 101.8 F Pulse Rate 120 102 Respiratory 12 18 Rate Blood Pressure 114/65 141/78 (mmHg) O2 Sat by Pulse 100 100 Oximetry 05/25/17 05/25/17 05/25/17 17:00 19:25 20:00 Temperature 99.6 F 101.1 F Pulse Rate 120 Respiratory 20 18 Rate Blood Pressure 135/79 (mmHg) O2 Sat by Pulse 99 Oximetry 05/25/17 05/25/17 05/25/17 21:11 23:11 23:16 Temperature 100.4 F Pulse Rate 120 Respiratory 20 18 15 Rate Blood Pressure 128/65 (mmHg) O2 Sat by Pulse 97 Oximetry 05/26/17 05/26/17 05/26/17 01:35 01:40 03:24 Temperature 99.8 F 98.5 F Pulse Rate 95 Respiratory 18 15 Rate Blood Pressure 117/62 (mmHg) O2 Sat by Pulse 100 Oximetry 05/26/17 05/26/17 05/26/17 03:35 07:26 09:26 Temperature 99.2 F Pulse Rate 105 Respiratory 18 18 14 Rate Blood Pressure 113/66 (mmHg) O2 Sat by Pulse 100 Oximetry Oxygen Devices in Use Now: None Appearance: Alert, on her side in bed. In fair spirits. Looks less uncomfortable today, also stronger. Eyes: No Scleral Icterus Neck: NL Appearance and Movements; NL JVP, No Thyroid Enlargement, Masses Respiratory: Symmetrical Chest Expansion and Respiratory Effort, Clear to Auscultation, Clear to Percussion Cardiovascular: NL Sounds; No Murmurs; No JVD, RRR, No Edema, - Extremities: No Edema, No Clubbing, Cyanosis, - Skin: No Rash or Ulcers, No Nodules or Sclerosis, - Neurological: Alert and Oriented x 3, NL Sensation Result Diagrams: 05/26/17 06:09 05/26/17 06:09 Additional Lab and Data: Lab Results 05/23/17 05/23/17 05/23/17 Range/Units 23:26 23:26 23:26 WBC 12.9 H (3.5-10.8) 10^3/ul RBC 3.42 L (4.0-5.4) 10^6/ul RBC (Retic) 3.42 L (4.6-6.2) 10^6/ul Hgb 8.6 L (12.0-16.0) g/dl Hct 25 L (35-47) % HCT (Retic) 25 L (35-47) % MCV 72 L (80-97) fL MCH 25 L (27-31) pg MCHC 35 (31-36) g/dl RDW 21 H (10.5-15) % Plt Count 309 (150-450) 10^3/ul MPV 8 (7.4-10.4) um3 Neut % (Auto) 68.7 (38-83) % Lymph % (Auto) 21.1 L (25-47) % [place] % (Auto) 8.1 (1-9) % Eos % (Auto) 1.1 (0-6) % Baso % (Auto) 1.0 (0-2) % Absolute Neuts (auto) 8.8 H (1.5-7.7) 10^3/ul Absolute Lymphs (auto) 2.7 (1.0-4.8) 10^3/ul Absolute Monos (auto) 1.0 H (0-0.8) 10^3/ul Absolute Eos (auto) 0.1 (0-0.6) 10^3/ul Absolute Basos (auto) 0.1 (0-0.2) 10^3/ul Absolute Nucleated RBC 0.07 10^3/ul Nucleated RBC % 0.5 Normal RBC Morphology Not Reportable Polychromasia 1+ Hypochromasia 2+ Microcytosis 2+ Sickle Cells 2+ Target Cells 3+ Retic Count, Calc 6.3 H (0.5-1.5) % Corrected Retic Count 3.5 H (0.5-1.5) % Retic Shift Factor 2.0 Retic Production Index 1.80 Immature Retic Fraction 0.66 Mean Retic Volume 111.3 Hem Pathologist Commnt Pending Sodium 134 (133-145) mmol/L Potassium 3.4 L (3.5-5.0) mmol/L Chloride 103 (101-111) mmol/L Carbon Dioxide 22 (22-32) mmol/L Anion Gap 9 (2-11) mmol/L BUN 8 (6-24) mg/dL Creatinine 0.72 (0.51-0.95) mg/dL Est GFR ( Amer) 131.5 (>60) Est GFR (Non-Af Amer) 102.3 (>60) BUN/Creatinine Ratio 11.1 (8-20) Glucose 96 (70-100) mg/dL Lactic Acid 1.1 (0.5-2.0) mmol/L Calcium 9.1 (8.6-10.3) mg/dL Total Bilirubin 3.20 H (0.2-1.0) mg/dL AST 38 (13-39) U/L ALT 15 (7-52) U/L Alkaline Phosphatase 49 (34-104) U/L Troponin I 0.00 (<0.04) ng/mL C-Reactive Protein 1.09 (< 5.00) mg/L Total Protein 7.5 (6.4-8.9) g/dL Albumin 4.4 (3.2-5.2) g/dL Globulin 3.1 (2-4) g/dL Albumin/Globulin Ratio 1.4 (1-3) Microbiology and Other Data: Microbiology 05/24/17 23:06 Aerobic Blood Culture - Preliminary Blood Venous No Growth Day 1 Anaerobic Blood Culture - Preliminary No Growth Day 1 Assess/Plan/Problems-Billing Assessment: - Patient Problems (1) Sickle cell anemia with crisis Current Visit: Yes Status: Acute Code(s): D57.00 - HB-SS DISEASE WITH CRISIS , UNSPECIFIED SNOMED Code(s): 052564146 Comment: Continue IV fluids, analgesics, levofloxacin. Message left for her primary hemtologist Rosita Gibbons ([phone]) to call me back. Change to morphine as her mother says it works better than hydromorphone for the patient. Laxatives ordered for constipation. Discussed with Dr. Garcias. Acute chest syndrome. She seems to be improving clinically, but if she deteriorates would need exchange transfusion. (2) Fever Current Visit: Yes Status: Acute Code(s): R50.9 - FEVER, UNSPECIFIED SNOMED Code(s): 264253629 Comment: Blood C&S sent. Start levofloxacin 750 mg IV q24 hr 05/25/17 AM.
[2017-05-26 10:28] LABS: Albumin 3.6 g/dL (3.2-5.2); Globulin 2.8 g/dL (2-4); Total Protein 6.4 g/dL (6.4-8.9)
[2017-05-26] MEDS: Acetaminophen TAB* 325 MG PO PRN (16:17)
[2017-05-26] MEDS: Polyethylene Glycol 3350* 17 GM PACKET PO SCH (21:45)
[2017-05-27] MEDS: Saline NASAL SPRAY 0.65%* BTL BOTH NARES PRN (00:50)
[2017-05-27] MEDS ORDERED: Morphine INJ* 4 MG/ML 1 ML CARPUJECT IV PRN (00:50)
[2017-05-27] MEDS: oxyCODONE/Acetamin 5/325 MG* TAB PO PRN ×4 (02:43→20:33)
[2017-05-27] MEDS ORDERED: oxyCODONE SR TAB(*) 10 MG TAB.SR PO ONE (03:18)
[2017-05-27] MEDS: NS 0.9% 1000 ML* 1,000 ML IV SCH ×2 (04:55→11:39)
[2017-05-27] MEDS: Heparin VIAL(*) 5000 UNITS/ML VIAL (FIVE THOUSAND) SUBCUT SCH ×3 (05:47→20:34)
[2017-05-27] MEDS: Trolamine Salicyl. 10% CREAM* 85 GM TUBE TOPICAL SCH ×3 (08:51→20:43)
[2017-05-27] MEDS: Polyethylene Glycol 3350* 17 GM PACKET PO SCH ×2 (08:51→21:02)
[2017-05-27] MEDS: Folic Acid TAB* 1 MG PO SCH (08:53)
--- NOTE | 2017-05-27 10:41 | PN ---
Subjective Date of Service: 05/27/17 Interval History: Pain level 4, relieved by 1 oxy/APAP. Pain is mostly in her legs, little if any in her chest. No cough, SOB. Objective Active Medications: Acetaminophen (Tylenol Tab*) 650 mg PO Q4H PRN PRN Reason: PAIN Last Admin: 05/26/17 16:17 Dose: 650 mg Albuterol (Ventolin Hfa Inhaler*) 2 puff INH Q4H PRN PRN Reason: SOB/WHEEZING Folic Acid (Folvite Tab*) 1 mg PO DAILY [facility] Last Admin: 05/27/17 08:53 Dose: 1 mg Heparin Sodium (Porcine) (Heparin Vial(*)) 5,000 units SUBCUT Q8HR [facility] Last Admin: 05/27/17 05:47 Dose: 5,000 units Sodium Chloride (Ns 0.9% 1000 Ml*) 1,000 mls @ 100 mls/hr IV PER RATE [facility] Last Admin: 05/27/17 04:55 Dose: 100 mls/hr Levofloxacin/Dextrose (Levaquin 750 Mg Ivpremix(*)) 750 mg in 150 mls @ 100 mls /hr IVPB Q24H [facility] Last Admin: 05/26/17 08:46 Dose: 100 mls/hr Ibuprofen (Motrin Tab*) 600 mg PO Q6H PRN PRN Reason: Pain, fever Morphine Sulfate (Morphine Inj (Syringe)*) 4 mg IV Q3H PRN PRN Reason: PAIN - MODERATE Oxycodone/Acetaminophen (Percocet 5/325 Tab*) 2 tab PO Q4H PRN PRN Reason: PAIN Last Admin: 05/27/17 08:51 Dose: 2 tab Polyethylene Glycol/Electrolytes (Miralax*) 17 gm PO 0800,2100 [facility] Last Admin: 05/27/17 08:51 Dose: 17 gm Sodium Chloride (Sodium Chloride 0.65% Nasal [place]*) 2 spray BOTH NARES Q4H PRN PRN Reason: CONGESTION Last Admin: 05/27/17 00:50 Dose: 2 spray Trolamine Salicylate (Myoflex 10% Cream*) 1 applic TOPICAL TID [facility] Last Admin: 05/27/17 08:51 Dose: 1 applic Vital Signs 05/26/17 05/26/17 05/26/17 10:59 11:24 14:39 Temperature 98.5 F Pulse Rate 101 Respiratory 12 18 16 Rate Blood Pressure 111/70 (mmHg) O2 Sat by Pulse 100 Oximetry 05/26/17 05/26/17 05/26/17 16:11 16:12 17:52 Temperature 102.2 F 101.1 F Pulse Rate 106 Respiratory 16 16 Rate Blood Pressure 144/67 (mmHg) O2 Sat by Pulse 100 Oximetry 05/26/17 05/26/17 05/26/17 20:00 20:18 21:43 Temperature 98.8 F Pulse Rate 116 Respiratory 16 18 14 Rate Blood Pressure 127/67 (mmHg) O2 Sat by Pulse 100 Oximetry 05/26/17 05/27/17 05/27/17 23:43 00:05 00:33 Temperature 100.3 F 101.1 F Pulse Rate 117 Respiratory 16 16 Rate Blood Pressure 131/64 (mmHg) O2 Sat by Pulse 98 Oximetry 05/27/17 05/27/17 05/27/17 02:43 02:46 03:31 Temperature 102.9 F Pulse Rate 131 Respiratory 18 18 16 Rate Blood Pressure 140/69 (mmHg) O2 Sat by Pulse 99 Oximetry 05/27/17 05/27/17 05/27/17 04:43 08:00 08:01 Temperature 100.2 F Pulse Rate 127 Respiratory 16 18 19 Rate Blood Pressure 138/71 (mmHg) O2 Sat by Pulse 94 Oximetry 05/27/17 08:51 Temperature Pulse Rate Respiratory 18 Rate Blood Pressure (mmHg) O2 Sat by Pulse Oximetry Oxygen Devices in Use Now: None Appearance: Alert, in chair. In good spirits. Looks comfortable. Eyes: No Scleral Icterus Neck: NL Appearance and Movements; NL JVP, No Thyroid Enlargement, Masses Respiratory: Symmetrical Chest Expansion and Respiratory Effort, Clear to Auscultation, Clear to Percussion Cardiovascular: NL Sounds; No Murmurs; No JVD, RRR, No Edema, - - Heart rapid, forceful impulse. Extremities: No Edema, No Clubbing, Cyanosis, - Skin: No Rash or Ulcers, No Nodules or Sclerosis, - Neurological: Alert and Oriented x 3, NL Sensation Result Diagrams: 05/26/17 06:09 05/26/17 06:09 Additional Lab and Data: Lab Results 05/23/17 05/23/17 05/23/17 Range/Units 23:26 23:26 23:26 WBC 12.9 H (3.5-10.8) 10^3/ul RBC 3.42 L (4.0-5.4) 10^6/ul RBC (Retic) 3.42 L (4.6-6.2) 10^6/ul Hgb 8.6 L (12.0-16.0) g/dl Hct 25 L (35-47) % HCT (Retic) 25 L (35-47) % MCV 72 L (80-97) fL MCH 25 L (27-31) pg MCHC 35 (31-36) g/dl RDW 21 H (10.5-15) % Plt Count 309 (150-450) 10^3/ul MPV 8 (7.4-10.4) um3 Neut % (Auto) 68.7 (38-83) % Lymph % (Auto) 21.1 L (25-47) % [place] % (Auto) 8.1 (1-9) % Eos % (Auto) 1.1 (0-6) % Baso % (Auto) 1.0 (0-2) % Absolute Neuts (auto) 8.8 H (1.5-7.7) 10^3/ul Absolute Lymphs (auto) 2.7 (1.0-4.8) 10^3/ul Absolute Monos (auto) 1.0 H (0-0.8) 10^3/ul Absolute Eos (auto) 0.1 (0-0.6) 10^3/ul Absolute Basos (auto) 0.1 (0-0.2) 10^3/ul Absolute Nucleated RBC 0.07 10^3/ul Nucleated RBC % 0.5 Normal RBC Morphology Not Reportable Polychromasia 1+ Hypochromasia 2+ Microcytosis 2+ Sickle Cells 2+ Target Cells 3+ Retic Count, Calc 6.3 H (0.5-1.5) % Corrected Retic Count 3.5 H (0.5-1.5) % Retic Shift Factor 2.0 Retic Production Index 1.80 Immature Retic Fraction 0.66 Mean Retic Volume 111.3 Hem Pathologist Commnt Pending Sodium 134 (133-145) mmol/L Potassium 3.4 L (3.5-5.0) mmol/L Chloride 103 (101-111) mmol/L Carbon Dioxide 22 (22-32) mmol/L Anion Gap 9 (2-11) mmol/L BUN 8 (6-24) mg/dL Creatinine 0.72 (0.51-0.95) mg/dL Est GFR ( Amer) 131.5 (>60) Est GFR (Non-Af Amer) 102.3 (>60) BUN/Creatinine Ratio 11.1 (8-20) Glucose 96 (70-100) mg/dL Lactic Acid 1.1 (0.5-2.0) mmol/L Calcium 9.1 (8.6-10.3) mg/dL Total Bilirubin 3.20 H (0.2-1.0) mg/dL AST 38 (13-39) U/L ALT 15 (7-52) U/L Alkaline Phosphatase 49 (34-104) U/L Troponin I 0.00 (<0.04) ng/mL C-Reactive Protein 1.09 (< 5.00) mg/L Total Protein 7.5 (6.4-8.9) g/dL Albumin 4.4 (3.2-5.2) g/dL Globulin 3.1 (2-4) g/dL Albumin/Globulin Ratio 1.4 (1-3) Microbiology and Other Data: Microbiology 05/24/17 23:06 Aerobic Blood Culture - Preliminary Blood Venous No Growth Day 1 Anaerobic Blood Culture - Preliminary No Growth Day 1 Assess/Plan/Problems-Billing Assessment: - Patient Problems (1) Sickle cell anemia with crisis Current Visit: Yes Status: Acute Code(s): D57.00 - HB-SS DISEASE WITH CRISIS , UNSPECIFIED SNOMED Code(s): 228741833 Comment: Continue NSS 100 ml/hr, analgesics, levofloxacin. Continue oxy/ APAP PRN. Laxatives ordered for constipation. Discussed with Dr. Garcias. Acute chest syndrome. She seems to be improving clinically, but fever has not changed. Total of 3 blood C&S sent. TSH add on. Patient states she always has a high heart rate. (2) Fever Current Visit: Yes Status: Acute Code(s): R50.9 - FEVER, UNSPECIFIED SNOMED Code(s): 501069627 Comment: Blood C&S sent. Start levofloxacin 750 mg IV q24 hr 05/25/17 AM.
[2017-05-27 11:04] LABS: Hematocrit 23 % (35-47); Hemoglobin 7.6 g/dl (12.0-16.0); Mean Corpuscular HGB Conc 33 g/dl (31-36); Mean Corpuscular Hemoglobin 25 pg (27-31); Mean Platelet Volume 9 um3 (7.4-10.4); Red Blood Count 3.09 10^6/ul (4.0-5.4); Red Cell Distribution Width 19 % (10.5-15); White Blood Count 14.7 10^3/ul (3.5-10.8)
[2017-05-27 11:05] LABS: Add Diff/Slide Review? Slide Review Added; Comments Flag Yes; Mean Corpuscular Volume 74 fL (80-97)
[2017-05-27 11:19] LABS: Albumin 3.8 g/dL (3.2-5.2); BUN/Creatinine Ratio 8.6 (8-20); Calcium 8.8 mg/dL (8.6-10.3); EGFR African American 168.8 (>60); EGFR Non-African American 131.2 (>60); Globulin 3.4 g/dL (2-4); Potassium 3.4 mmol/L (3.5-5.0); Total Bilirubin 3.4 mg/dL (0.2-1.0); Total Protein 7.2 g/dL (6.4-8.9)
[2017-05-27] MEDS: Levofloxacin 750 MG IVPREMIX(* 750 MG/150 ML BAG IVPB SCH (11:39)
[2017-05-27 12:39] LABS: Microcytosis 1+
[2017-05-27 12:51] LABS: Polychromasia 1+; Target Cells 2+
[2017-05-27 12:52] LABS: Schistocytes 1+
[2017-05-27 13:04] LABS: Add Path Review? YES
[2017-05-27] MEDS: Ibuprofen TAB* 600 MG PO PRN (21:01)
[2017-05-28] MEDS: NS 0.9% 1000 ML* 1,000 ML IV SCH ×2 (01:42→13:22)
[2017-05-28] MEDS: Heparin VIAL(*) 5000 UNITS/ML VIAL (FIVE THOUSAND) SUBCUT SCH ×3 (07:39→20:41)
[2017-05-28] MEDS: Ibuprofen TAB* 600 MG PO PRN ×2 (08:05→19:37)
[2017-05-28] MEDS: Folic Acid TAB* 1 MG PO SCH (08:06)
[2017-05-28] MEDS: oxyCODONE/Acetamin 5/325 MG* TAB PO PRN ×2 (08:25→19:38)
[2017-05-28] MEDS: Trolamine Salicyl. 10% CREAM* 85 GM TUBE TOPICAL SCH ×3 (08:29→20:41)
[2017-05-28] MEDS: Polyethylene Glycol 3350* 17 GM PACKET PO SCH ×2 (08:29→19:39)
[2017-05-28 08:34] LABS: Albumin 3.5 g/dL (3.2-5.2); BUN/Creatinine Ratio 9.1 (8-20); Calcium 8.7 mg/dL (8.6-10.3); EGFR African American 179.4 (>60); EGFR Non-African American 139.5 (>60); Globulin 3.3 g/dL (2-4); Hematocrit 25 % (35-47); Hemoglobin 8.3 g/dl (12.0-16.0); Mean Corpuscular HGB Conc 34 g/dl (31-36); Mean Corpuscular Hemoglobin 26 pg (27-31); Mean Corpuscular Volume 76 fL (80-97); Mean Platelet Volume 9 um3 (7.4-10.4); Potassium 3.5 mmol/L (3.5-5.0); Red Blood Count 3.22 10^6/ul (4.0-5.4); Red Cell Distribution Width 20 % (10.5-15); Total Bilirubin 2.6 mg/dL (0.2-1.0); Total Protein 6.8 g/dL (6.4-8.9); White Blood Count 12.7 10^3/ul (3.5-10.8)
[2017-05-28 08:35] LABS: Add Diff/Slide Review? Slide Review Added; Comments Flag Yes
[2017-05-28] MEDS: Levofloxacin 750 MG IVPREMIX(* 750 MG/150 ML BAG IVPB SCH (09:21)
--- NOTE | 2017-05-28 09:47 | PN ---
Progress Note - Progress Note Date of Service: 05/28/17 SOAP: Subjective: []Much better today after transfusion. Fever still increased last night but feels better. Breathing is fine today. She is up and walking around. Wants to go home today and parents want to take back to [place]. Eating well. Acetaminophen (Tylenol Tab*) 650 mg PO Q4H PRN PRN Reason: PAIN Last Admin: 05/26/17 16:17 Dose: 650 mg Albuterol (Ventolin Hfa Inhaler*) 2 puff INH Q4H PRN PRN Reason: SOB/WHEEZING Folic Acid (Folvite Tab*) 1 mg PO DAILY [facility] Last Admin: 05/28/17 08:06 Dose: 1 mg Heparin Sodium (Porcine) (Heparin Vial(*)) 5,000 units SUBCUT Q8HR [facility] Last Admin: 05/28/17 07:39 Dose: 5,000 units Sodium Chloride (Ns 0.9% 1000 Ml*) 1,000 mls @ 100 mls/hr IV PER RATE [facility] Last Admin: 05/28/17 01:42 Dose: 100 mls/hr Levofloxacin/Dextrose (Levaquin 750 Mg Ivpremix(*)) 750 mg in 150 mls @ 100 mls /hr IVPB Q24H [facility] Last Admin: 05/28/17 09:21 Dose: 100 mls/hr Ibuprofen (Motrin Tab*) 600 mg PO Q6H PRN PRN Reason: Pain, fever Last Admin: 05/28/17 08:05 Dose: 600 mg Morphine Sulfate (Morphine Inj (Syringe)*) 4 mg IV Q3H PRN PRN Reason: PAIN - MODERATE Oxycodone/Acetaminophen (Percocet 5/325 Tab*) 2 tab PO Q4H PRN PRN Reason: PAIN Last Admin: 05/28/17 08:25 Dose: 2 tab Polyethylene Glycol/Electrolytes (Miralax*) 17 gm PO 0800,2100 [facility] Last Admin: 05/28/17 08:29 Dose: Not Given Sodium Chloride (Sodium Chloride 0.65% Nasal [place]*) 2 spray BOTH NARES Q4H PRN PRN Reason: CONGESTION Last Admin: 05/27/17 00:50 Dose: 2 spray Trolamine Salicylate (Myoflex 10% Cream*) 1 applic TOPICAL TID [facility] Last Admin: 05/28/17 08:29 Dose: 1 applic Objective: [] Vital Signs Temp Pulse Resp BP Pulse Ox 99.5 F 110 16 136/71 97 05/28/17 07:54 05/28/17 07:54 05/28/17 08:25 05/28/17 07:54 05/28/17 07:54 HEENT: Mucosa moist. Still sclera ictera CTA RRR S1S2 +BS, NT ND Ext no c/c/e Neuro AAOx3 Assessment: 21 yo F w sickle/beta thal with acute chest syndrome, likely mild to moderate. She has improved significantly from blood transfusion. Beathing is fine, walking well and pain to 0 at rest. Labs c/w decreased hydrolysis. 1. I advise she stay in hospital today and go home tomorrow 2. Can taper off IVF 3. Try to Percoset as possible 4. Can leave early am tomorrow assuming she continues to do well. Follow up with MD in [place], can RTC to our practice PRN.
[2017-05-28 09:51] LABS: Hypochromasia 1+; Polychromasia 1+; Target Cells 2+
[2017-05-28 09:52] LABS: Schistocytes 1+
--- NOTE | 2017-05-28 15:08 | PN ---
Subjective Date of Service: 05/28/17 Interval History: HOSPITALIST PROGRESS NOTE Patient seen and examined at bedside. She feels better today, LE pain is much improved and chest pain is resolved. Family History: Unchanged from Admission Social History: Unchanged from Admission Past Medical History: Unchanged from Admission Objective Active Medications: Acetaminophen (Tylenol Tab*) 650 mg PO Q4H PRN PRN Reason: PAIN Last Admin: 05/26/17 16:17 Dose: 650 mg Albuterol (Ventolin Hfa Inhaler*) 2 puff INH Q4H PRN PRN Reason: SOB/WHEEZING Folic Acid (Folvite Tab*) 1 mg PO DAILY [facility] Last Admin: 05/28/17 08:06 Dose: 1 mg Heparin Sodium (Porcine) (Heparin Vial(*)) 5,000 units SUBCUT Q8HR [facility] Last Admin: 05/28/17 13:24 Dose: Not Given Sodium Chloride (Ns 0.9% 1000 Ml*) 1,000 mls @ 100 mls/hr IV PER RATE [facility] Last Admin: 05/28/17 13:22 Dose: 100 mls/hr Levofloxacin/Dextrose (Levaquin 750 Mg Ivpremix(*)) 750 mg in 150 mls @ 100 mls /hr IVPB Q24H [facility] Last Admin: 05/28/17 09:21 Dose: 100 mls/hr Ibuprofen (Motrin Tab*) 600 mg PO Q6H PRN PRN Reason: Pain, fever Last Admin: 05/28/17 08:05 Dose: 600 mg Morphine Sulfate (Morphine Inj (Syringe)*) 4 mg IV Q3H PRN PRN Reason: PAIN - MODERATE Oxycodone/Acetaminophen (Percocet 5/325 Tab*) 2 tab PO Q4H PRN PRN Reason: PAIN Last Admin: 05/28/17 08:25 Dose: 2 tab Polyethylene Glycol/Electrolytes (Miralax*) 17 gm PO 0800,2100 [facility] Last Admin: 05/28/17 08:29 Dose: Not Given Sodium Chloride (Sodium Chloride 0.65% Nasal [place]*) 2 spray BOTH NARES Q4H PRN PRN Reason: CONGESTION Last Admin: 05/27/17 00:50 Dose: 2 spray Trolamine Salicylate (Myoflex 10% Cream*) 1 applic TOPICAL TID [facility] Last Admin: 05/28/17 13:23 Dose: 1 applic Vital Signs 05/28/17 11:45 Temperature 98.1 F Pulse Rate 104 Respiratory 18 Rate Blood Pressure 117/69 (mmHg) O2 Sat by Pulse 100 Oximetry Oxygen Devices in Use Now: None Appearance: Young lady lying in bed in NAD. Eyes: No Scleral Icterus Ears/Nose/Mouth/Throat: Mucous Membranes Moist Neck: Trachea Midline Respiratory: Symmetrical Chest Expansion and Respiratory Effort, Clear to Auscultation Cardiovascular: NL Sounds; No Murmurs; No JVD, RRR Neurological: Alert and Oriented x 3, NL Muscle Strength and Tone Lines/Tubes/Other Access: Clean, Dry and Intact Peripheral IV Result Diagrams: 05/28/17 08:01 05/28/17 08:01 Assess/Plan/Problems-Billing Assessment: Ms. Pettit is a 21yo F with PMH of sickle cell/beta thalassemia anemia, asthma , who presented to ED with c/o diffuse pain and dyspnea, found to have sickle cell crisis/mild to moderate acute chest syndrome. - Patient Problems (1) Acute chest syndrome due to sickle cell crisis Comment: - Much improved after 1 PRBC transfusion. - Chest pain is resolved. (2) Sickle cell anemia with crisis Comment: - Hematology input appreciated. - Doing much better. - Will d/c IVF, continue analgesics and levofloxacin. (3) DVT prophylaxis Comment: - SQ heparin. (4) Full code status Status and Disposition: Anticipate d/c in AM. Recommend follow up with primary Station Operator Dr. Shai Becker in [facility], .
[2017-05-28] MEDS ORDERED: NS 0.9% 1000 ML* 1,000 ML IV SCH (18:30)
[2017-05-28] MEDS: Acetaminophen TAB* 325 MG PO PRN (22:11)
[2017-05-29] MEDS: Heparin VIAL(*) 5000 UNITS/ML VIAL (FIVE THOUSAND) SUBCUT SCH (04:47)
[2017-05-29] MEDS: Ibuprofen TAB* 600 MG PO PRN (04:47)
[2017-05-29] MEDS: oxyCODONE/Acetamin 5/325 MG* TAB PO PRN (04:48)
[2017-05-29] MEDS: Folic Acid TAB* 1 MG PO SCH (07:51)
[2017-05-29] MEDS: Levofloxacin 750 MG IVPREMIX(* 750 MG/150 ML BAG IVPB SCH (07:51)
[2017-05-29] MEDS: Polyethylene Glycol 3350* 17 GM PACKET PO SCH (08:15)
[2017-05-29] MEDS: Trolamine Salicyl. 10% CREAM* 85 GM TUBE TOPICAL SCH (08:15)
[2017-05-29 09:41] LABS: Hematocrit 27 % (35-47); Hemoglobin 9.2 g/dl (12.0-16.0); Mean Corpuscular HGB Conc 34 g/dl (31-36); Mean Corpuscular Hemoglobin 26 pg (27-31); Mean Corpuscular Volume 77 fL (80-97); Mean Platelet Volume 10 um3 (7.4-10.4); Red Blood Count 3.54 10^6/ul (4.0-5.4); Red Cell Distribution Width 20 % (10.5-15); White Blood Count 8.1 10^3/ul (3.5-10.8)
[2017-05-29 09:46] LABS: Add Diff/Slide Review? Slide Review Added; Comments Flag Yes
[2017-05-29 09:50] VITALS: BP 112/46
[2017-05-29 10:07] LABS: Eosinophils % 1 % (0-6); Hypochromasia 2+; Microcytosis 1+; Neutrophil % 74 % (38-83)
[2017-05-29 10:08] LABS: Polychromasia 1+; Sickle Cells 2+; Target Cells 2+
--- NOTE | 2017-05-30 05:49 | DS ---
CC: Dr. Francisco Haro; Dr. Rosita Gibbons * DISCHARGE SUMMARY: DATE OF ADMISSION: 05/24/17 DATE OF DISCHARGE: 05/29/17 PRIMARY CARE PROVIDER: Dr. Franicsco Haro in [place], [place]. CREDIT SPECIALIST: Dr. Rosita Gibbons in [place], [place]. DISCHARGE DIAGNOSES: 1. Sickle cell crisis. 2. Acute chest syndrome. 3. Fever. SECONDARY DIAGNOSES: 1. History of sickle cell/beta thalassemia. 2. Asthma. MEDICATION LIST: 1. Folic acid 1 mg p.o. daily. 2. Albuterol HFA 2 puffs inhaled q.4 hours p.r.n. 3. Oxycodone/acetaminophen 5/325 mg 1 to 2 tablets p.o. q.6 hours p.r.n. pain, MDD 8 tablets, dispensed 15. 4. Ibuprofen 600 mg p.o. q.6 hours p.r.n. pain or fever. HOSPITAL COURSE: Ms. Pettit is a 21-year-old lady with a past medical history as stated above that presented to the emergency room with complaints of diffuse sudden onset of pain followed by severe chest pain and shortness of breath. For more details about her presentation, I refer you to her history and physical. The patient was admitted under the impression of sickle cell crisis. She received IV hydration and pain medication. The patient was seen in consultation by Hematology (Dr. Dean) and he agreed with management with IV fluids, supplemental oxygen and pain medication. He also recommended transfusion if the patient had progression of her symptoms and this did happen over the weekend and she received 1 PRBC with significant improvement of her symptoms. She received levofloxacin as it is very difficult to differentiate between her acute chest syndrome and infectious etiology. The patient became afebrile, had improvement of her symptoms and she was felt to be stable for discharge. Of note, all her cultures were negative. She is medically stable. She will be discharged home today. 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 PHYSICAL EXAMINATION: Vital Signs: Temperature 98.2, heart rate is 97, respiratory rate is 21, oxygen saturation is 100% on room air, blood pressure 112/46. General: The patient is a pleasantly young lady, lying in bed, in no acute distress. CVS: Normal S1, S2. Regular rate and rhythm. Chest: Breath sounds present bilaterally with no added sounds. Extremities: No edema. Neuro : She is alert and oriented x3. Able to move all 4 extremities. DIET: Regular diet. ACTIVITIES: As tolerated. DISPOSITION: To home. STATUS WHILE IN THE HOSPITAL: Inpatient. Please keep in mind that this is a summarized version of this patient's hospital stay. If you need more information, please feel free to call me at or please obtain the full medical records. Approximately 45 minutes were spent to complete this discharge. [id number]/CPS #: [id number] MTDD
== END 2017-05-29 12:55 | disposition home or self-care (01) | DRG 662 ==
LOC: ED 22:21 → MED 05-24 02:43 → OBSVTOIN 05-24 09:20
PROVIDERS: ADMIT Hospitalist; ATTEND Internal Medicine
PROC: 30233N1 Transfusion of Nonautologous Red Blood Cells into Peripheral Vein, Percutaneous Approach (ICD-10-PCS; principal; 2017-05-27)
DX: D57.01 Hb-SS disease with acute chest syndrome (principal); J45.909 Unspecified asthma, uncomplicated; R50.9 Fever, unspecified; D57.411 Sickle-cell thalassemia, unspecified, with acute chest syndrome; Z79.899 Other long term (current) drug therapy; Z82.49 Family history of ischemic heart disease and other diseases of the circulatory system
CPT/HCPCS: 36415; 71020; 80048; 80053; 80076; 81003; 81015; 83605; 83615; 84443; 84484; 85025; 85027; 85045; 85060; 86140; 86850; 86900; 86901; 86922; 87040; 93005; 99223; 99232; A9270-GY; J1170; J1644; J2270; J2405; P9040

== ENCOUNTER 2017-09-22 08:53 | Emergency (ER) | payer BC ==
[2017-09-22] MEDS ORDERED: Methocarbamol TAB* 500 MG PO ONE (09:14)
[2017-09-22] MEDS ORDERED: Ibuprofen TAB* 800 MG PO ONE (09:14)
[2017-09-22] MEDS ORDERED: oxyCODONE/Acetamin 5/325 MG* TAB PO ONE (09:14)
[2017-09-22] MEDS ORDERED: Ondansetron INJ* 2 MG/ML VIAL IV ONE (09:15)
[2017-09-22] MEDS ORDERED: Ondansetron ODT TAB* 4 MG ONE (09:18)
[2017-09-22] MEDS ORDERED: Ondansetron ODT TAB* 4 MG PO ONE (09:19)
--- NOTE | 2017-09-22 10:14 | RAD ---
Indication: Low back pain with movement for about 2 weeks without known injury. Comparison: No relevant prior exams available on the [facility] for comparison. Technique: AP and lateral views lumbar sacral spine. Report: Alignment is anatomic. No cortical disruption or trabecular impaction to indicate a vertebral body fracture. Preserved disc spaces. Unremarkable soft tissue contours. IMPRESSION: Negative radiographic exam of the lumbar sacral spine.
[2017-09-22 10:36] VITALS: BP 121/70
--- NOTE | 2017-09-22 18:30 | ED ---
Karis Urias Thomas scribed for Darrick Vargas MD on 09/22/17 at 0913 . Back Pain - HPI Summary HPI Summary: The patient is a 21 year old female presenting to the emergency department complaining of lower back pain that has gradually worsened over the last two months. The pain is rated 7/10. The pain is aggravated by movement and ambulation. The patient has treated the symptoms with nothing prior to arrival. She denies trauma and heavy lifting. The patient denies bladder or bowel incontinence and dysuria. Past medical history includes sickle cell disease. The patient reports during her normal sickle cell crises, she has pain in her legs and upper extremities. She reports her current symptoms are not common to typical crises. - History of Current Complaint Chief Complaint: EDBackInjuryPain Stated Complaint: LOWER BACK PAIN Time Seen by Provider: 09/22/17 08:57 Hx Obtained From: Patient Onset/Duration: Lasting Weeks - onset two months ago, Still Present, Worse Since - gradual worsening Onset/Duration: Still Present Timing: Constant Back Pain Location: Is Discrete @ - lower back Severity Currently: Moderate Pain Intensity: 7 Pain Scale Used: 0-10 Numeric Aggravating Symptom(s): Movement Alleviating Symptom(s): Nothing Associated Signs And Symptoms: Negative: Bladder Incontinence, Bowel Incontinence, Other - dysuria - Allergies/Home Medications Allergies/Adverse Reactions: Allergies Allergy/AdvReac Type Severity Reaction Status Date / Time No Known Allergies Allergy Verified 05/23/17 22:55 PMH/Surg Hx/FS Hx/Imm Hx Endocrine/Hematology History: Reports: Hx Sickle Cell Disease Cardiovascular History: Reports: Other Cardiovascular Problems/Disorders - Sickle cell anemia Respiratory History: Reports: Hx Asthma Sensory History: Denies: Hx Contacts or Glasses, Hx Hearing Aid Opthamlomology History: Denies: Hx Contacts or Glasses Infectious Disease History: No Infectious Disease History: Denies: Traveled Outside the [place] in Last 30 Days - Family History Known Family History: Positive: Hypertension - Mother - Social History Occupation: Student Alcohol Use: None Substance Use Type: Reports: None Smoking Status (MU): Never Smoked Tobacco Review of Systems Negative: Fever Negative: Other - bowel incontinence Negative: dysuria, incontinence - bladder Positive: Other - back pain All Other Systems Reviewed And Are Negative: Yes Physical Exam - Summary Physical Exam Summary: VITAL SIGNS: Reviewed. GENERAL: Patient is a well-developed and nourished Female who is lying comfortable in the stretcher. Patient is not in any acute respiratory distress. HEAD AND FACE: No signs of trauma. No ecchymosis, hematomas or skull depressions. No sinus tenderness. EYES: PERRLA, EOMI x 2, No injected conjunctiva, no nystagmus. EARS: Hearing grossly intact. Ear canals and tympanic membranes are within normal limits. MOUTH: Oropharynx within normal limits. NECK: Supple, trachea is midline, no adenopathy, no JVD, no carotid bruit, no c- spine tenderness, neck with full ROM. CHEST: Symmetric, no tenderness at palpation LUNGS: Clear to auscultation bilaterally. No wheezing or crackles. CVS: Regular rate and rhythm, S1 and S2 present, no murmurs or gallops appreciated. ABDOMEN: Soft, non-tender. No signs of distention. No rebound no guarding, and no masses palpated. Bowel sounds are normal. BACK: She has positive paraspinal tenderness in the lumbar spine bilaterally. EXTREMITIES: FROM in all major joints, no edema, no cyanosis or clubbing. NEURO: Alert and oriented x 3. No acute neurological deficits. Speech is normal and follows commands. SKIN: Dry and warm Triage Information Reviewed: Yes Vital Signs On Initial Exam: Initial Vitals Temp Pulse Resp BP Pulse Ox 98.2 F 102 16 116/69 97 09/22/17 08:55 09/22/17 08:55 09/22/17 08:55 09/22/17 08:55 09/22/17 08:55 Vital Signs Reviewed: Yes Diagnostics - Vital Signs Vital Signs Temp Pulse Resp BP Pulse Ox 09/22/17 08:55 98.2 F 102 16 116/69 97 - Laboratory Lab Statement: Any lab studies that have been ordered have been reviewed, and results considered in the medical decision making process. - Radiology XR L-Spine Xray Interpretation: No Acute Changes - Negative radiographic exam of the lumbar sacral spine. Dr. Vargas has reviewed this report. Radiology Interpretation Completed By: Radiologist Back Pain Course/Dx - Course Assessment/Plan: The patient is a 21 year old female presenting to the emergency department complaining of lower back pain that has gradually worsened over the last two months. The pain is rated 7/10. The pain is aggravated by movement and ambulation. The patient has treated the symptoms with nothing prior to arrival. She denies trauma and heavy lifting. The patient denies bladder or bowel incontinence and dysuria. Past medical history includes sickle cell disease. The patient reports during her normal sickle cell crises, she has pain in her legs and upper extremities. She reports her current symptoms are not common to typical crises. XR L-spine shows Negative radiographic exam of the lumbar sacral spine. In the ED course, the patient was given ibuprofen, Robaxin, Zofran, and Percocet. She is feeling better and is ambulating. Her pain improved. The patient will be discharged home to follow up with primary care. - Diagnoses Differential Diagnosis/HQI/PQRI: Positive: Arthritis, Compressive Cord Syndrome , Fracture, Herniated Disc, Osteoporosis, Strain, Sprain Provider Diagnoses: Back pain Discharge - Discharge Plan Condition: Stable Disposition: HOME Prescriptions: Methocarbamol TAB* [Robaxin 500 MG TAB*] 750 mg PO TID PRN #12 tab PRN Reason: Pain methylPREDNISolone [Medrol Dosepak 4 MG*] 0 mg PO .SEE JODI INSTRUCTION #1 jodi Naproxen [Naproxen 500 mg] 500 mg PO BID #30 tablet Patient Education Materials: Back Pain (ED) Referrals: [facility] - Jose REID [Primary Care Provider] - 3 Days Additional Instructions: Follow up at [facility] in three days. Return to the emergency department for any new or worsening symptoms. The documentation as recorded by the Karis rodriguez Thomas accurately reflects the service I personally performed and the decisions made by , Darrick Vargas MD.
== END 2017-09-22 10:34 | disposition home or self-care (01) ==
LOC: ED 08:53
DX: M54.5 Low back pain (principal)
CPT/HCPCS: 72100; 99282; A9270-GY